=== PATIENT | male | born 1985 | race Caucasian/White ===

== ENCOUNTER → 2022-05-28 | Emergency (ER) | payer OTHER ==
[~2022-05-28] VITALS: Ht 185.4 cm; Wt 74.8 kg
== END | disposition left against medical advice (07) ==
LOC: ER 10:46
DX: R10.9 Unspecified abdominal pain (principal); Z20.822 Contact with and (suspected) exposure to COVID-19

== ENCOUNTER 2022-05-29 04:12 | Emergency (ER) | payer OTHER ==
[~2022-05-29] VITALS: Ht 177.8 cm; Wt 90.7 kg
== END 2022-05-29 07:55 | disposition home or self-care (01) ==
LOC: ER 04:12
DX: M54.50 Low back pain, unspecified (principal)